=== PATIENT | male | born 1950 | race Caucasian/White ===

== ENCOUNTER 2017-06-27 08:33 | Day surgery (SDC) | payer MEDICARE, OTHER ==
[2017-06-23 15:17] LABS: BASOPHILS % (AUTO) 0.3 % (0-1); EOSINOPHILS # (AUTO) 0.2 X10'3 (0-0.9); EOSINOPHILS % (AUTO) 2.3 % (0-6); LYMPHOCYTES # (AUTO) 1.7 X10'3 (1.1-4.8); LYMPHOCYTES % (AUTO) 21.2 % (21-51); MEAN CORPUSCULAR HEMOGLOBIN 30.9 PG (27.0-31.0); MEAN CORPUSCULAR HGB CONC 33.9 % (33.0-36.5); MEAN CORPUSCULAR VOLUME 91.2 FL (78-98); MEAN PLATELET VOLUME 7.7 FL (7.4-10.4); MONOCYTES # (AUTO) 0.5 X10'3 (0-0.9); MONOCYTES % (AUTO) 5.7 % (2-12); NEUTROPHILS # (AUTO) 5.7 X10'3 (1.8-7.7); NEUTROPHILS % (AUTO) 70.5 % (42-75); PRE OP HEMATOCRIT 48.4 % (42.0-52.0); PRE OP HEMOGLOBIN 16.4 g/dL (14.0-17.9); PRE OP PLATELET COUNT 206 X10'3 (140-440)
[2017-06-23 15:32] LABS: ALBUMIN 4.2 G/DL (3.4-5.0); ALBUMIN/GLOBULIN RATIO 1.1 (1.1-1.5); ALKALINE PHOSPHATASE 62 IU/L (46-116); BLOOD UREA NITROGEN 23 MG/DL (7-18); BUN/CREATININE RATIO 26.1 (5.4-32.0); CALCIUM 9.4 MG/DL (8.5-10.1); CHLORIDE 102 MMOL/L (99-107); CREATININE 0.88 MG/DL (0.60-1.10); PRE OP ALT 41 U/L (30-65); PRE OP ANION GAP 11 (8-16); PRE OP AST 27 U/L (10-37); PRE OP BILIRUB, TOTAL 0.7 MG/DL (0.0-1.0); PRE OP GLUCOSE 91 MG/DL (70-104); PRE OP POTASSIUM 4.1 MMOL/L (3.4-5.1); PRE OP SODIUM 140 MMOL/L (135-145); TOTAL CARBON DIOXIDE 27.3 MMOL/L (24-32); eGFR 86 ML/MIN
[~2017-06-27] VITALS: Ht 167.6 cm; Wt 80.3 kg
[~2017-06-27 08:33] MED LIST: BUPIVAcaine/PF 2.5 mg/ml (0.25%) 30ml vial ONE; CHOL10002 PO; LOVA20TA2 PO; OMEG1CAP PO; SAW450CA7 PO; UBID100C45 PO; cefazolin/dext.iso 2gm/50ml 50 ML IV ONE; famotidine 20mg tablet PO ONE; ringers solution, lacted 1,000 ML IV SCH
[2017-06-27 09:00] VITALS: BP 137/79
[2017-06-27] MEDS ORDERED: albuterol 2.5 MG/3 ML nebule NEB ONE (10:10)
[2017-06-27] MEDS ORDERED: LIDOcaine 0.5% (5mg/ml) 50ml vial ONE (10:28)
[2017-06-27] MEDS ORDERED: fentaNYL/PF 50MCG/1 ML 2ML syringe ONE (10:56)
[2017-06-27] MEDS ORDERED: midazolam 2 mg/2 ml injection ONE ×2 (10:56)
[2017-06-27] MEDS ORDERED: propofol inj 20 ML IV ONE (11:08)
[2017-06-27] MEDS ORDERED: proCHLORperazine 10 MG/2 ml inj IV PRN (11:30)
[2017-06-27] MEDS ORDERED: meperidine/PF 50mg/ml syringe IV PRN ×3 (11:30)
[2017-06-27] MEDS ORDERED: ondansetron/PF 4mg/2ml inj IV PRN (11:30)
[2017-06-27] MEDS ORDERED: morphine 4 MG/ML inj SYRINge IV PRN ×2 (11:30)
[2017-06-27] MEDS ORDERED: ringers solution, lacted 1,000 ML IV SCH (11:30)
[2017-06-27 12:05] VITALS: BP 140/80
[2017-06-27 12:15] VITALS: BP 127/78
[2017-06-27 12:25] VITALS: BP 135/84
== END 2017-06-27 12:35 | disposition home or self-care (01) ==
LOC: PRE-OP 08:33
PROVIDERS: ATTEND Orthopaedic Surgery Hand Surgery
DX: M18.11 Unilateral primary osteoarthritis of first carpometacarpal joint, right hand (principal); M65.311 Trigger thumb, right thumb; J45.909 Unspecified asthma, uncomplicated; G43.909 Migraine, unspecified, not intractable, without status migrainosus; Z79.899 Other long term (current) drug therapy; Z88.8 Allergy status to other drugs, medicaments and biological substances; M25.541 Pain in joints of right hand
CPT/HCPCS: 25445; 36415; 80053; 85025; 93005; 94640; 94760; A6222; A6449; J0690; J2001; J2250; J2704; J3010; J3490; J7120; L8630; A7000